=== PATIENT | female | born 1950 | race Caucasian/White ===

== ENCOUNTER 2016-03-08 09:56 | Inpatient (IN) ==
[2016-03-08] MEDS ORDERED: Albuterol 2.5 MG/3 ML NEBULIZER ONE (10:22)
--- NOTE | 2016-03-08 10:28 | Anesthesia Evaluation PreOp ---
Date of Encounter: 03/08/16 Time of Encounter: 10:29 - Past History Cardiac History: Denies any Significant Hx, Hyperlipidemia, Arrhythmia ( Palpatations) Pulmonary History: Smoker, Pack/yr (1 ppd) [employer] History: Other (Lumbar stenosis, CP) Other Medical History: Other (OA) Anesthesia History: No Prior Anesthetic Complications, Past Anesthesia (Curtis. Common Iliac,Ankle, Shoulder, Partial Hyst, GB) : No Alcohol Use: none Drug use: none Medications and Allergies Acetaminophen [Tylenol] 1 - 2 tab PO Q4H PRN #0 tablet 12/09/15 [Rx] ClonazePAM [Klonopin] 1 mg PO TID 12/09/15 [History] Clopidogrel Bisulfate [Plavix] 75 mg PO DAILY #30 tablet 12/09/15 [Rx] Ezetimibe [Zetia] 10 mg PO DAILY 12/09/15 [History] Omeprazole [PriLOSEC] 40 mg PO DAILY 12/09/15 [History] Vitamin E 1 tab PO DAILY 12/09/15 [History] Allergies acetaminophen [From Percocet] Allergy (Verified 10/23/14 12:28) Rash codeine Allergy (Verified 10/23/14 15:44) Rash hydrocodone [From Vicodin] Allergy (Verified 10/23/14 12:28) Rash morphine Allergy (Verified 10/23/14 12:28) Rash Oxycodone [From Percocet] Allergy (Verified 10/23/14 12:28) Rash propoxyphene [From Darvon] Allergy (Verified 10/23/14 15:44) Vomiting Sulfa (Sulfonamide Antibiotics) Allergy (Verified 10/23/14 15:44) Rash - Meds/Allergy Pre-op Review Medications Reviewed: Yes Allergies Reviewed: Yes Beta Blockers on Current Med List: No Anesthesia Results - Labs Laboratory Tests 02/29/16 02/29/16 02/29/16 15:20 15:20 15:20 WBC 8.0 Hgb 14.3 Hct 42.4 Plt Count 319 INR 1.0 Sodium 141 Potassium 3.6 Chloride 107 Carbon Dioxide 27 - Imaging EKG: image reviewed (, kendra old [place]. [place]) Anesthesia Exam O2 Sat Height 1.65 m Height 1.65 m Height 1.65 m Weight 81.193 kg Weight 81.193 kg Weight 81.193 kg O2 Sat by Pulse Oximetry 99 O2 Sat by Pulse Oximetry 100 O2 Sat by Pulse Oximetry 100 Vital Signs Temp Pulse Resp BP Pulse Ox 97.7 F 68 18 117/71 100 03/08/16 10:31 03/08/16 10:31 03/08/16 10:31 03/08/16 10:31 03/08/16 10:31 Height: 5'5'' Weight: 179# NPO (# of Hours): > 8 Hrs Pain Scale: 0 Pain Scale Used: Numeric (1 - 10) - HEENT Pupil (Motor): Pupils equal, EOMI Mallampati: II Teeth: Edentulous Oral Opening: Greater than 3 - [employer] LOC: Oriented [employer] Motor: Normal RUE, Normal LUE, Normal RLE, Normal LLE, Normal Face [employer] Sensory: Normal: RUE, LUE, RLE, LLE, Face - Cardiac Rhythm: Regular Murmur: None JVD: No Carotid Bruit: No - Pulmonary Breath Sounds: bilateral Clear Respiratory Effort: Symmetrical Anesthesia Assess/Plan ASA Score: 3 Modified Amston Scale for Level of Consciousness: Cooperative, oriented, and tranquil Anesthetic Plan: General Autologous Blood: Yes Monitoring Plan: Standard Monitors, A-Line Recovery Plan: PACU
[2016-03-08] MEDS ORDERED: Albuterol 2.5 MG/3 ML NEBULIZER IH ONE (10:38)
[2016-03-08] MEDS ORDERED: CeFAZolin Pre 2,000 MG/100 ML 2,000 MG/100 ML BAG IVPB ONE (10:38)
[2016-03-08] MEDS ORDERED: Ringers Solution, Lactated 1,000 ML IVC SCH (10:45)
[2016-03-08] MEDS ORDERED: Vancomycin 1,250 MG in D5% in Water 250 ML IVPB ONE (10:52)
[2016-03-08] MEDS ORDERED: Heparin 1,000 UNITS/500 mL NS 500 ML ONE (11:19)
--- NOTE | 2016-03-08 11:31 | History & Physical Report ---
Date of Encounter: 03/08/16 Time of Encounter: 11:25 24 Hour HP Update - Instructions Instructions: If the History and Physical is less than 30 days old and was completed prior to A.M. admission and or procedure and has NOT been updated on calendar day of procedure please complete this update prior to performing procedure. - Update Patient reports changes in Medical Condition: No Changes in assessment/condition: No Preop tests/diagnostics Reviewed: No Surgery Remains Indicated: Yes Consent for Planned Operative Procedure(s) Verified: Yes - Pre-Operative Checklist Preoperative Checklist Indicated: Yes Prophylactic Antibiotic Ordered: Yes (vancomycin due to mrsa risk) Home Medications Include Beta Anthony: No Beta Anthony Taken Today (Day of Surgery): No Beta Anthony Taken Yesterday (Day Prior to Surgery): No
[2016-03-08] MEDS ORDERED: Lidocaine -MPF 4% 5 ML AMPUL ONE (11:37)
[2016-03-08] MEDS ORDERED: *HR* FentaNYL (PF) 100 MCG/2 ML VIAL ONE (11:37)
[2016-03-08] MEDS ORDERED: *HR* Midazolam HCl 2 MG/2 ML VIAL ONE (11:37)
[2016-03-08] MEDS ORDERED: *HR* Succinylcholine 200 MG/10 ML VIAL IVP ONE (11:37)
[2016-03-08] MEDS ORDERED: *HR* Propofol 200 MG/20 ML VIAL IVP ONE ×2 (11:37→13:39)
[2016-03-08] MEDS ORDERED: Dexamethasone 4 MG/ML VIAL ONE (11:37)
[2016-03-08] MEDS ORDERED: Ondansetron 4 MG/2 ML VIAL ONE (11:37)
[2016-03-08] MEDS ORDERED: Lidocaine -MPF 2% 2 ML VIAL ONE (11:38)
[2016-03-08] MEDS ORDERED: *HR* Heparin 5,000 UNIT/ML VIAL ONE ×2 (11:38→15:12)
[2016-03-08] MEDS ORDERED: Vancomycin 1,000 MG VIAL ONE (11:42)
[2016-03-08] MEDS ORDERED: Heparin 1,000 UNITS/500 mL NS 1,000 ML ONE (11:42)
[2016-03-08] MEDS ORDERED: *HR* Remifentanil 2 MG VIAL IVP ONE (11:44)
[2016-03-08] MEDS ORDERED: EPHEDrine 50 MG/ML VIAL ONE (13:31)
[2016-03-08] MEDS ORDERED: *HR* HYDROmorphone (PF) 1 MG/ML SYRINGE IVP PRN ×2 (14:18→17:08)
[2016-03-08] MEDS ORDERED: *HR* Promethazine 25 MG/ML VIAL IVP PRN ×2 (14:18→17:08)
[2016-03-08] MEDS ORDERED: *HR* HYDROmorphone 2 MG/ML SYRINGE ONE (15:33)
[2016-03-08] MEDS ORDERED: *HR* Phenylephrine 10 MG/ML VIAL ONE (16:45)
--- NOTE | 2016-03-08 16:47 | Operative Note ---
Date of procedure: 03/08/16 Pre-op diagnosis: Peripheral vascular disease with disabling claudication Post-op diagnosis: same Procedure: 1. Right common femoral to left common femoral bypass with 6mm PTFE graft. 2. Right common femoral and superficial femoral endarterectomy. Complications: None Anesthesia: GETA Surgeon: Valentin Arnold Estimated blood loss (cc): 100 Specimen: None Condition: stable Disposition: PACU Procedure in Detail: Indications: The patient is a 65 year old female with a history of disabling claudication. She previously had covered iliac stents placed at another hospital with subsequent occlusion of the left stent and stenosis of the right stent. She has undergone repeat right iliac stent placement. The left iliac stent remained occluded. Revascularization was recommended with bypass. Procedure: The patient was identified in the preoperative area. The risks, benefits, and alternatives of the procedure were discussed. All questions were answered. The patient was taken to the operating room and placed in supine position on the operating room table. After the induction of general endotracheal anesthesia, he was cleaned and draped in normal sterile fashion. An oblique incision was made over the right groin sharply. Hemostasis was obtained with electrocautery. Through a process of blunt, sharp, and electrocautery dissection, the right femoral vessels were dissected circumferentially and surrounded with vessel loops. An oblique incision was then made over the left groin sharply. Hemostasis was obtained with electrocautery. Through a process of blunt, sharp, and electrocautery dissection, the left femoral vessels were dissected circumferentially and surrounded with vessel loops. A graft was tunneled between the right and left femoral incisions. The patient received 5000 units of heparin intravenously. After waiting adequate time for the heparin to circulate, the right femoral vessels were occluded. A longitudinal arteriotomy was made into the right common femoral artery. A plaque with intimal hyperplasia was identified in the distal common femoral artery. Significant inflammation was noted in this area as dissection was extended distally along the superficial femoral artery. The vessel loop was placed more distally and a loop was passed around a side branch as well. The arteriotomy was extended and the plaque was noted to be extending into and partially obstructing the superficial femoral artery lumen. Using a dental freer, an endarterectomy was performed on the distal common femoral and proximal superficial femoral artery. Upon excision of the plaque, the endpoint revealed no elevated flap. The lumen was flushed with heparinized saline. The graft was then cut to fit the arterial defect. The graft was sutured in place with a running 6-0 Prolene. The vessels were flushed through the graft. Heparinized saline was infused into the graft lumen. The graft was clamped with an atraumatic clamp. Flow was restored in the right femoral vessels. Tension was applied to the left femoral artery vessel loops. An arteriotomy was made in the left common femoral artery and the graft was cut to fit the defect. The graft was anastamosed with a running 6 -0 Prolene. Prior to completing the anastamosis, the left femoral vessels were flushed through the graft anastamosis and heparin was infused into the lumen. The anastamosis was completed and flow was restored in the left lower extremity. Thrombin and gelfoam were used at the proximal anastamosis. Polyphasic signals were noted distal to the anastamoses. The wounds were irrigated with antibiotic-containing saline. Platelet rich and platelet poor plasma were infused into the wounds. Meticulous hemostasis was obtained throughout the wound with electrocautery. Wounds were reapproximated with layers of 2-0 and 3-0 Vicryl. Skin was reapproximated with 3-0 Monocryl. Sterile dressing was applied. The patient was extubated and taken to recovery room in stable condition.
[2016-03-08] MEDS ORDERED: Ketorolac 15 MG/ML VIAL IVP PRN (17:08)
[2016-03-08] MEDS ORDERED: Naloxone 0.4 MG/ML INJ IVP PRN (17:08)
[2016-03-08] MEDS ORDERED: traMADol 50 MG TABLET PO PRN (17:08)
[2016-03-08] MEDS ORDERED: Ondansetron 4 MG/2 ML VIAL IVP PRN (17:08)
[2016-03-08] MEDS ORDERED: Acetaminophen 325 MG TABLET PO PRN (17:08)
[2016-03-08] MEDS ORDERED: *HR* Labetalol 20 MG/4 ML SYRINGE IVP PRN (17:08)
--- NOTE | 2016-03-08 17:21 | Anesthesia Evaluation Post Op ---
Date of Encounter: 03/08/15 Time of Encounter: 17:19 - Vital Signs Vital Signs: vss - Lungs Lungs: Clear Ascult./Percussion - Airway Airway: Non-obstructed - Cardiovascular Regular Rate - Mental Status Mental Status: Alert & Oriented, Answers Appropriately - Pain Pain Scale: 0 Pain Scale used: Numeric (1 - 10) - Nausea Vomiting Nausea Vomiting: Not Present - Hydration Hydration: Tolerates oral liquids - Discharge PostOp Status: Transfer Patient to floor
[2016-03-08] MEDS: *HR* Metoprolol 5 MG/5 ML VIAL IVP SCH (18:17)
[2016-03-09] MEDS: clonazePAM 1 MG TABLET PO SCH ×2 (00:12→10:02)
[2016-03-09] MEDS: *HR* Metoprolol 5 MG/5 ML VIAL IVP SCH ×2 (00:15→05:24)
[2016-03-09] MEDS ORDERED: Vancomycin 1,250 MG in D5% in Water 250 ML IVPB ONE (00:30)
[2016-03-09 04:41] LABS: Basophils % 0.4 %; Hematocrit 38.8 % (35.3-44.9); Hemoglobin 12.8 g/dL (11.5-15.4); Immature Granulocytes % 0.5 % (0-4); Lymphocytes # 1.2 K/mcL (0.6-4.6); Lymphocytes % 11.1 %; Mean Corpuscular Hemoglobin 31.2 pg (28.0-33.3); Mean Corpuscular Volume 94.6 fL (83.0-100.0); Mean Platelet Volume 9.4 fL (9.4-12.4); Monocytes % 9.2 %; Neutrophils # 8.2 K/mcL (1.6-8.9); Platelet Count 271 K/mcL (140-400); Segmented Neutrophils % 78.8 %
[2016-03-09 05:00] LABS: BUN/Creatinine Ratio 8 (6-26); Calcium 8.5 mg/dL (8.6-10.8); Carbon Dioxide 23 mEq/L (19-29); Chloride 108 mEq/L (98-109); Glucose 98 mg/dL (70-99); Osmolality,Calculated 285 (280-300); Potassium 4.1 mEq/L (3.5-4.5); Sodium 139 mEq/L (136-145); eGFR For African Americans > 60 (> 60); eGFR For Non-African Americans > 60 (> 60)
[2016-03-09 05:03] LABS: Blood Urea Nitrogen 5 mg/dL (7-20)
[2016-03-09] MEDS ORDERED: *HR* Heparin 5,000 UNIT/ML VIAL SQ SCH ×2 (06:00)
--- NOTE | 2016-03-09 07:26 | Discharge Summary ---
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 She reports that her leg feels better. She has polyphasic signals and her wounds appear to be healing without hematoma. She will be discharged today. (2) Essential hypertension Priority: Secondary Status: Chronic Comments: The patient was counseled regarding atherosclerotic risk factor reduction. (3) Mixed hyperlipidemia Priority: Secondary Status: Chronic (4) Tobacco abuse Priority: Secondary Status: Chronic Comments: The patient was counseled regarding smoking cessation. - Discharge Medications Prescriptions: OxyCODONE/APAP 5/325 [Percocet 5/325 MG] 1 each PO Q4H PRN #30 tablet PRN Reason: POSTOPERATIVE PAIN Home Medications: Acetaminophen [Tylenol] 1 - 2 tab PO Q4H PRN #0 tablet 12/09/15 [Rx] ClonazePAM [Klonopin] 1 mg PO TID 12/09/15 [History] Clopidogrel Bisulfate [Plavix] 75 mg PO DAILY #30 tablet 12/09/15 [Rx] Ezetimibe [Zetia] 10 mg PO DAILY 12/09/15 [History] Omeprazole [PriLOSEC] 40 mg PO DAILY 12/09/15 [History] Vitamin E 400 unit PO DAILY 12/09/15 [History] OxyCODONE/APAP 5/325 [Percocet 5/325 MG] 1 each PO Q4H PRN #30 tablet 03/09/16 [ Rx] Allergies/Adverse Reactions: Allergies acetaminophen [From Percocet] Allergy (Verified 10/23/14 12:28) Rash codeine Allergy (Verified 10/23/14 15:44) Rash hydrocodone [From Vicodin] Allergy (Verified 10/23/14 12:28) Rash morphine Allergy (Verified 10/23/14 12:28) Rash Oxycodone [From Percocet] Allergy (Verified 10/23/14 12:28) Rash propoxyphene [From Darvon] Allergy (Verified 10/23/14 15:44) Vomiting Sulfa (Sulfonamide Antibiotics) Allergy (Verified 10/23/14 15:44) Rash Date of admission: 03/08/16 16:27 Primary care physician: Sarah Golden CNP Procedure(s) Performed: FEM FEM Bypass Discharging clinician: Valentin Arnold Anticipated date of discharge: 03/10/16 - Patient Status Disposition: Home, Self-Care Condition: Good Functional capacity at discharge: independent ambulation Overall status at discharge: patient is back to baseline - Discharge Instructions Instructions: Oxycodone/Acetaminophen (By mouth), Cigarette Smoking and Your Health (GEN), Femoropopliteal Bypass (DC) Follow Up With: Sarah Golden CNP [Primary Care Provider] - 03/14/16 8:20 am Valentin Arnold MD [Partnered Physician] - 04/13/16 1:10 pm Additional Instructions: INCREASE DIET TOLERATED. INCREASE ACTIVITY TOLERATED. ELEVATE LOWER EXT WHEN SITTING. IF YOU SMOKE, IT IS RECOMMENDED THAT YOU STOP. NO LIFTING MORE THAN 10POUNDS FOR 2 WEEKS. NO STRAINING. IF YOU COUGH, SNEEZE, LAUGH HARD, THEN SPLINT YOUR GROINS. NO TUB BATHS, HOT TUBS, OR POOLS. YOU MAY REMOVE YOUR DRESSINGS TOMORROW 03-10-16 AND SHOWER. WASH SOAP AND WATER. THEN PAT DRY. NO OINTMENTS, CREAMS, POWDERS TO INCISIONS. STAIRS ARE OKAY. ONE AT A TIME. NO DRIVING UNTIL FOLLOW UP APPOINTMENT. IF INCISIONS ARE SEEPING, YOU MAY COVER WITH GAUZE AND TAPE AND CHANGE DAILY OR NEEDED. MONITOR FOR SIGNS OF INFECTION; SWELLING, YELLOW/GREEN DRAINAGE, FEVER, INCREASED REDNESS. CONTINUE TO USE THE INCENTIVE SPIROMETER. RISK FACTORS: STOP SMOKING: If you smoke, STOP. Smoking or tobacco use significantly increases your risk of heart disease because nicotine causes the arteries to narrow or constrict. It also causes fats to stick to the artery. Your chances of having a heart attack are greatly increased if you continue to smoke. For more information, call the education line for smoking cessation 4-754-GQKKHZE EAT A LOW FAT/CHOLESTEROL/SODIUM DIET: This diet may help reduce your chances of having a heart attack. LIFTING: Avoid lifting anything more than 10 pounds for 5-7 days Prior to straining, laughing, sneezing and/or coughing, apply manual pressure directly over insertion site. ACTIVITY: You may walk or climb stairs as tolerated You can resume sexual activity as tolerated In general, you are encouraged to engage in a minimum of 30 minutes or more of moderate intensity physical activity, such as brisk walking, daily or at least 3 -4 times weekly BATHING Do not submerge the site into water (bath tub, hot tub, swimming pool) for 1 week. This can be a source for infection into the blood stream. You may shower after 24 hours SITE CARE: After 24 hours, you may remove the dressing and leave the site open to air. Keep the site clean and dry. Clean gently and pat dry. You can expect bruising and tenderness that gradually resolve within a week or two. Return to work as instructed per your physician Resume driving as instructed per physician Keep all scheduled follow up appointments Resume medications as instructed IMPORTANT: If prescribed a Platelet Aggregation Inhibitor such as, Plavix, Brilinta or Effient: Duration of therapy is minimum one year These medications are often used in combination with Aspirin in prevention of future heart attacks Never discontinue unless consult with your Animal Sitter STROKE (CVA) Risk factors for a stroke are: Age, cigarette smoking, diabetes, excessive alcohol consumption, family history, high blood pressure, overweight, physical inactivity, prior stroke, heart attack, diagnosis of carotid artery stenosis or other artery disease. Warning signs: Sudden numbness or weakness of the face, arm or leg; especially on one side of the body, sudden confusion, trouble speaking or understanding, sudden trouble seeing in one or both eyes, sudden trouble walking, dizziness, loss of balance or coordination, sudden severe headache with no cause. Call 911 or go to the Emergency Room. CONGESTIVE HEART FAILURE: If you have been diagnosed with Congestive Heart Failure (CHF) and your symptoms return, make an appointment with your physician Weigh yourself daily. Notify your physician if you have a weight gain of two or more pounds in one day or five or more pounds in one week. If you experience any difficulty breathing, please call 911 BLEEDING: Although the risk of bleeding is minimal, it can happen. If you have any bleeding from the site, apply firm pressure above the puncture site for 10-15 minutes. If the bleeding does not stop, continue manual pressure and call 911 Contact your physician if: You develop a fever greater than 101 degrees Fahrenheit Your site becomes reddened or has any drainage You have an increase in pain or burning at the site or if a large knot forms at the site. If you experience chest pain, shortness of breath, dizziness, or extreme tiredness, stop the activity and rest. Please notify your physicians office if you experience any of these symptoms and they are not relieved by rest please call 911! - Diet and Activity Activity: increase activity as tolerated Diet: advance to your usual diet - Hospital Course Hospital course: Ms. Tavera is a 65 year old female was admitted for a FEM-FEM bypass due to peripheral vascular disease with disabling claudication as a result of a chronic left iliac artery occlusion. She tolerated the procedure well and was discharged in stable condition on postoperative day #1. - Time Spent with Patient Total time spent providing and/or coordinating discharge services: Exam Vital Signs, Last 4 Hours Temp Pulse Resp BP Pulse Ox 03/09/16 03:59 98.1 F 71 16 106/51 97 03/09/16 03:30 65 General: Present: Conversant, No Apparent Distress HEENT: Present: Pupils equal Cardiac: Present: Reg Rate and Rhythm Lungs: Present: Normal Breath Sounds, No Wheeze, Rales, Rhonchi Neuro: Present: Alert and responsive, No focal deficits noted, Motor nerves grossly intact, Sensory nerves grossly intact Abdomen: Present: Soft, Non-tender Vascular: Present: Normal capillary refill, Pulse, normal, Surgical incisions ( no hematoma). Absent: Cyanosis, Edema Skin: Present: No rashes noted on visualized skin - VTE Documentation of Mechanical Device: Intermittent pneumatic compression device
[2016-03-09 07:27] VITALS: BP 102/61
[2016-03-09] MEDS ORDERED: (Ezetimibe [Zetia] 10 MG) PO SCH (09:00)
[2016-03-09] MEDS ORDERED: ceFAZolin 2,000 MG in D5% in Water 100 ML IVPB SCH (20:30)
== END 2016-03-09 10:30 | disposition home or self-care (01) | DRG 253 ==
LOC: SAMDAY 09:56 → 2NNU 16:27
PROVIDERS: ADMIT Surgery; ATTEND Surgery
PROC: VASFFBG (ICD-10-PCS; 2016-03-08 11:45)

== ENCOUNTER 2021-04-14 | Inpatient (IN) ==
[2021-04-15] MEDS ORDERED: Naloxone 0.4 MG/ML INJ IVP PRN (04:09)
[2021-04-15] MEDS ORDERED: *HR* HYDROcodone/Acet 5/325 mg TABLET PO PRN (04:09)
[2021-04-15] MEDS ORDERED: Melatonin 3 MG TABLET PO PRN (04:09)
[2021-04-15] MEDS ORDERED: *HR* Promethazine 25 MG/ML VIAL IM PRN (04:09)
[2021-04-15] MEDS ORDERED: Ondansetron 4 MG/2 ML VIAL IVP PRN (04:09)
[2021-04-15] MEDS ORDERED: Acetaminophen 325 MG TABLET PO PRN (04:09)
[2021-04-15] MEDS ORDERED: Ipratropium/Albuterol Neb 3 ML IH PRN (04:56)
[2021-04-15] MEDS: Azithromycin 500 MG in 0.9 % Sodium Chloride 250 ML IVPB SCH (05:38)
[2021-04-15] MEDS: Ringers Solution, Lactated 1,000 ML IVC SCH ×3 (05:38→17:38)
[2021-04-15] MEDS: MethylPREDNISolone 40 MG/ML VIAL IVP SCH ×2 (05:39→16:30)
[2021-04-15] MEDS ORDERED: *HR* Enoxaparin 30 MG/0.3 ML SYRINGE SQ SCH (06:00)
[2021-04-15 07:38] LABS: INR 1.1; Prothrombin Time 12.8 Seconds (9.4-12.1)
[2021-04-15 07:45] LABS: Calcium 7.2 mg/dL (8.6-10.3); Potassium 3.1 mEq/L (3.5-5.1)
[2021-04-15] MEDS ORDERED: 0.9 % Sodium Chloride 500 ML IVC ONE (08:10)
[2021-04-15 08:36] LABS: Basophils % 0.3 %; Eosinophils % 0.1 %; Hemoglobin 11.2 g/dL (11.5-15.4); Immature Granulocytes % 0.5 % (0-4); Lymphocytes # 0.8 K/mcL (0.6-4.6); Lymphocytes % 7.2 %; Mean Corpuscular HGB Conc 32.9 g/dL (31.6-35.5); Mean Corpuscular Hemoglobin 31.7 pg (28.0-33.3); Mean Corpuscular Volume 96.3 fL (83.0-100.0); Mean Platelet Volume 10.2 fL (9.4-12.4); Monocytes # 0.4 K/mcL (0.0-1.3); Monocytes % 3.6 %; Neutrophils # 9.7 K/mcL (1.6-8.9); Platelet Count 140 K/mcL (140-400); Red Blood Count 3.53 M/mcL (3.82-4.97); Red Cell Distribution Width 14.9 % (11.5-14.5); Segmented Neutrophils % 88.3 %
[2021-04-15] MEDS ORDERED: cefTRIAXone 1,000 MG in 0.9 % Sodium Chloride Mini Bag 100 ML IVPB SCH (09:00)
[2021-04-15] MEDS: Piperacillin/Tazobactam 3.375 GM in 0.9 % Sodium Chloride Mini Bag 100 ML IVPB SCH ×3 (12:54→23:16)
[2021-04-15 14:07] LABS: Adenovirus Not Detected (Not Detect); Bordetella Pertussis Not Detected (Not Detect); Chlamydophila pneumoniae Not Detected (Not Detect); Coronavirus 229E Not Detected (Not Detect); Coronavirus HKU1 Not Detected (Not Detect); Coronavirus NL63 Not Detected (Not Detect); Coronavirus OC43 Not Detected (Not Detect); Human Metapneumovirus Not Detected (Not Detect); Human Rhinovirus/Enterovirus Not Detected (Not Detect); Influenza A Subtype 2009 H1 Not Detected (Not Detect); Influenza B Not Detected (Not Detect); Mycoplasma pneumoniae Not Detected (Not Detect); Parainfluenza Virus 1 Not Detected (Not Detect); Parainfluenza Virus 2 Not Detected (Not Detect); Parainfluenza Virus 3 Not Detected (Not Detect); Parainfluenza Virus 4 Not Detected (Not Detect); Respiratory Syncytial Virus Not Detected (Not Detect); SARS-CoV-2 Not Detected (Not Detect)
[2021-04-15 17:12] LABS: Adenovirus F 40/41 PCR Not detected (Not detect); Astrovirus PCR Not detected (Not detect); C.difficile Toxin A/B Gene PCR Not detected (Not detect); Campylobacter by PCR Not detected (Not detect); Cryptosporidium by PCR Not detected (Not detect); Cyclospora cayetanensis PCR Not detected (Not detect); E. coli O157 by PCR Not detected (Not detect); Entamoeba histolytica PCR Not detected (Not detect); Enteroaggregative E.coli(EAEC) Not detected (Not detect); Enteropathogenic E.coli(EPEC) Not detected (Not detect); Enterotoxigenic E.coli (ETEC) Not detected (Not detect); Giardia lamblia PCR Not detected (Not detect); Norovirus GI/GII PCR Not detected (Not detect); Plesiomonas shigelloides PCR Not detected (Not detect); Rotavirus A PCR Not detected (Not detect); Salmonella PCR Not detected (Not detect); Sapovirus PCR Not detected (Not detect); Shig/EnteroinvasiveE coli EIEC Not detected (Not detect); Shigalike tox-prod E coli STEC Not detected (Not detect); Vibrio PCR Not detected (Not detect); Vibrio cholerae PCR Not detected (Not detect); Yersinia enterocolitica PCR Not detected (Not detect)
[2021-04-15] MEDS: Ipratropium/Albuterol Neb 3 ML IH SCH ×3 (20:09→23:37)
[2021-04-15] MEDS: clonazePAM 1 MG TABLET PO SCH (21:13)
[2021-04-15] MEDS ORDERED: diazePAM 10 MG/2 ML SYRINGE IVP ONE (22:42)
[2021-04-15] MEDS: Nicotine 21 MG PATCH.TD24 TD SCH (23:09)
[2021-04-15] MEDS: GuaiFENesin Liq 200 MG/10 ML UDC PO PRN (23:15)
[2021-04-16 02:19] LABS: Basophils % 0.1 %; Hematocrit 33.4 % (35.3-44.9); Hemoglobin 11.1 g/dL (11.5-15.4); Immature Granulocytes % 0.5 % (0-4); Lymphocytes # 0.8 K/mcL (0.6-4.6); Lymphocytes % 9.4 %; Mean Corpuscular HGB Conc 33.2 g/dL (31.6-35.5); Mean Corpuscular Hemoglobin 31.7 pg (28.0-33.3); Mean Corpuscular Volume 95.4 fL (83.0-100.0); Mean Platelet Volume 10.7 fL (9.4-12.4); Monocytes # 0.4 K/mcL (0.0-1.3); Monocytes % 4.5 %; Neutrophils # 6.9 K/mcL (1.6-8.9); Platelet Count 153 K/mcL (140-400); Segmented Neutrophils % 85.5 %
[2021-04-16 02:29] LABS: BUN/Creatinine Ratio 16 (6-26); Blood Urea Nitrogen 17 mg/dL (8-23); Carbon Dioxide 20 mEq/L (23-29); Chloride 109 mEq/L (98-107); Potassium 3.3 mEq/L (3.5-5.1); Sodium 138 mEq/L (136-145); eGFR For African Americans > 60 (> 60)
[2021-04-16 02:30] LABS: Calcium 7.6 mg/dL (8.6-10.3); Glucose 139 mg/dL (70-105); Magnesium 1.6 mg/dL (1.6-2.6); Osmolality,Calculated 290 (280-300); eGFR For Non-African Americans 50 (> 60)
[2021-04-16] MEDS: Ringers Solution, Lactated 1,000 ML IVC SCH (04:04)
[2021-04-16] MEDS: Azithromycin 500 MG in 0.9 % Sodium Chloride 250 ML IVPB SCH (04:05)
[2021-04-16] MEDS: Ipratropium/Albuterol Neb 3 ML IH SCH ×4 (04:28→15:46)
[2021-04-16] MEDS ORDERED: *HR* Enoxaparin 40 MG/0.4 ML SYRINGE SQ SCH (06:00)
[2021-04-16] MEDS: MethylPREDNISolone 40 MG/ML VIAL IVP SCH (06:10)
[2021-04-16] MEDS: clonazePAM 1 MG TABLET PO SCH (07:57)
[2021-04-16] MEDS: Nicotine 21 MG PATCH.TD24 TD SCH (07:58)
[2021-04-16] MEDS: Piperacillin/Tazobactam 3.375 GM in 0.9 % Sodium Chloride Mini Bag 100 ML IVPB SCH ×2 (07:58→15:08)
[2021-04-16] MEDS ORDERED: predniSONE 20 MG TABLET PO SCH (09:00)
[2021-04-16 11:17] VITALS: BP 104/64; PULSE 55; TEMP 97.6; O2SAT 93
[2021-04-16] MEDS: GuaiFENesin Liq 200 MG/10 ML UDC PO PRN (15:08)
== END 2021-04-16 17:24 | disposition home or self-care (01) | DRG 177 ==
LOC: 2ANU → SUATTDRO 04-15 04:02
PROVIDERS: ADMIT Internal Medicine; ATTEND Internal Medicine

== ENCOUNTER 2021-11-03 11:27 | Inpatient (IN) ==
[2021-11-03] MEDS ORDERED: CeFAZolin Syr 2,000MG/20 ML 2,000 MG/20 ML SYRINGE IVPB ONE (11:48)
[2021-11-03] MEDS ORDERED: Vancomycin 1,250 MG/262.5 ML IV.SOLN IVPB ONE (11:48)
[2021-11-03] MEDS ORDERED: Bupivacaine-MPF 0.25% 10 ML VIAL ONE (11:54)
[2021-11-03] MEDS ORDERED: *HR* Propofol 200 MG/20 ML VIAL IVP ONE (11:54)
[2021-11-03] MEDS ORDERED: Ondansetron 4 MG/2 ML VIAL ONE (11:54)
[2021-11-03] MEDS ORDERED: *HR* Rocuronium Bromide 50 MG/5 ML VIAL ONE (11:54)
[2021-11-03] MEDS ORDERED: Lidocaine -MPF 2% 5 ML VIAL ONE (11:54)
[2021-11-03] MEDS ORDERED: *HR* FentaNYL (PF) 100 MCG/2 ML VIAL ONE (11:54)
[2021-11-03] MEDS ORDERED: *HR* Succinylcholine 200 MG/10 ML VIAL IVP ONE (11:54)
[2021-11-03] MEDS ORDERED: Protamine Sulfate 50 MG/5 ML VIAL IVP ONE (11:55)
[2021-11-03] MEDS ORDERED: Ringers Solution, Lactated 1,000 ML IVC SCH (12:00)
[2021-11-03] MEDS ORDERED: *HR* HYDROmorphone PF 0.5 MG/0.5 ML SYRINGE IVP PRN (12:24)
[2021-11-03] MEDS ORDERED: *HR* OxyCODONE Immed Rel 5 MG TABLET PO PRN (12:24)
[2021-11-03] MEDS ORDERED: Ondansetron 4 MG/2 ML VIAL IVP PRN (12:24)
[2021-11-03] MEDS ORDERED: Vancomycin 1,000 MG, Sodium Chloride IRRigation 1,000 ML IR ONE (12:30)
[2021-11-03] MEDS ORDERED: EPHEDrine 50 MG/ML VIAL ONE (13:06)
[2021-11-03] MEDS ORDERED: 0.9 % Sodium Chloride 1,000 ML IVC SCH (16:44)
[2021-11-03] MEDS ORDERED: Naloxone 0.4 MG/ML INJ IVP PRN (16:44)
[2021-11-03] MEDS ORDERED: Acetaminophen 325 MG TABLET PO PRN (16:44)
[2021-11-03] MEDS ORDERED: *HR* Labetalol 20 MG/4 ML SYRINGE IVP PRN (16:44)
[2021-11-03] MEDS: *HR* Metoprolol 5 MG/5 ML VIAL IVP SCH ×2 (17:16→22:39)
[2021-11-03] MEDS: clonazePAM 1 MG TABLET PO SCH (21:54)
[2021-11-03] MEDS: CeFAZolin 2 GM/120 ML BAG IVPB SCH (22:04)
[2021-11-04] MEDS ORDERED: Vancomycin 1,250 MG/262.5 ML IV.SOLN IVPB ONE
[2021-11-04 04:05] LABS: Basophils % 0.1 %; Hematocrit 31.5 % (35.3-44.9); Hemoglobin 10.9 g/dL (11.5-15.4); Immature Granulocytes % 0.5 % (0-4); Lymphocytes % 11.4 %; Mean Corpuscular HGB Conc 34.6 g/dL (31.6-35.5); Mean Corpuscular Hemoglobin 31.7 pg (28.0-33.3); Mean Corpuscular Volume 91.6 fL (83.0-100.0); Mean Platelet Volume 9.2 fL (9.4-12.4); Monocytes # 0.6 K/mcL (0.0-1.3); Monocytes % 6.6 %; Neutrophils # 6.9 K/mcL (1.6-8.9); Platelet Count 275 K/mcL (140-400); Red Blood Count 3.44 M/mcL (3.82-4.97); Red Cell Distribution Width 13.2 % (11.5-14.5); Segmented Neutrophils % 81.4 %; White Blood Count 8.5 K/mcL (4.3-11.1)
[2021-11-04 04:21] LABS: Calcium 8.3 mg/dL (8.6-10.3); Potassium 4.5 mEq/L (3.5-5.1)
[2021-11-04] MEDS: *HR* Metoprolol 5 MG/5 ML VIAL IVP SCH (04:30)
[2021-11-04] MEDS: CeFAZolin 2 GM/120 ML BAG IVPB SCH (05:31)
[2021-11-04] MEDS ORDERED: 0.9 % Sodium Chloride 500 ML ONE (08:34)
[2021-11-04] MEDS: clonazePAM 1 MG TABLET PO SCH (08:35)
[2021-11-04] MEDS ORDERED: 0.9 % Sodium Chloride 500 ML IV ONE (08:36)
[2021-11-04] MEDS ORDERED: (Ezetimibe [Zetia] 10 MG Tablet) PO SCH (09:00)
[2021-11-04] MEDS ORDERED: NON-FORMULARY MEDICATION 1 EACH EACH (Gabapentin [Neurontin] 600 MG Tablet) PO SCH (09:00)
[2021-11-04] MEDS ORDERED: Cholecalciferol (D-3) 1,000 UNIT (25MCG) TABLET PO SCH (09:00)
[2021-11-04] MEDS ORDERED: Lactobacillus 1 EACH CAP.SPRINK PO SCH (09:00)
[2021-11-04] MEDS ORDERED: Aspirin Enteric Coated 81 MG Tablet PO SCH (09:00)
[2021-11-04] MEDS ORDERED: *HR* Heparin 5,000 UNIT/ML VIAL SQ SCH ×2 (09:00)
[2021-11-04] MEDS ORDERED: lisinopriL 20 MG TABLET PO SCH (09:00)
[2021-11-04 12:10] VITALS: BP 111/44; PULSE 77; TEMP 97.6; O2SAT 96
== END 2021-11-04 12:49 | disposition home or self-care (01) | DRG 253 ==
LOC: SAMDAY 11:27 → 2NNU 16:41
PROVIDERS: ADMIT Surgery; ATTEND Surgery